=== PATIENT | female | born 1980 | race Caucasian/White ===

== ENCOUNTER 2023-01-20 06:18 | Day surgery (SDC) | payer BC, SELFPAY ==
[2023-01-12 13:42] VITALS: BMI 39.1
[2023-01-20] VITALS (18 sets, daily range): BP systolic 84–139; BP diastolic 37–89; PULSE 64–93; RESP 12–25; TEMP 36.1–36.6; O2SAT 94–100; BMI 38.9
[2023-01-20] MEDS: LACTATED RINGERS 1,000 ML 42 ML IV ×3 (06:51→10:34)
[2023-01-20] MEDS: VANCOMYCIN 1,000 MG/200 ML PIGGYBACK 200 MG IV (06:51)
--- NOTE | 2023-01-20 07:32 | DI.RAD.S_ITS ---
PROCEDURE: XR HIP W PEL IF DONE LT 2V INDICATIONS: TOTAL LEFT HIP REPLACEMENT TECHNIQUE: AP pelvis and lateral view of the left hip acquired. COMPARISON: [facility], CR, XR PELVIS 1-2V, 01/20/2023, 9:16. [facility], CR, XR PELVIS WITH BILATERAL LATERAL HIPS, 10/03/2022, 16:36. FINDINGS: Bones: Patient is status post left hip arthroplasty, with hardware components in expected positions. The hip joint appears congruent. The visualized bony structures appear intact. Degenerative changes again seen in the right hip and pubic symphysis. Soft tissues: Overlying postoperative changes are noted. No suspicious soft tissue densities. IMPRESSION: Expected post-operative appearance of a hip arthroplasty. Approved by: Albert Layton M.D. on 01/20/2023 at 13:19
--- NOTE | 2023-01-20 07:40 | PM.PREOP ---
Pre-operative Note Interval Note History & Physical reviewed/Exam performed by Physician: Yes Changes to H&P: No
--- NOTE | 2023-01-20 07:42 | DI.RAD.S_ITS ---
PROCEDURE: XR PELVIS 1-2V INDICATIONS: LEFT VASILE TECHNIQUE: Intra-operative view of the pelvis and hip acquired. COMPARISON: None. FINDINGS: Bones: Intraoperative devices prior to placement of arthroplasty prostheses are in expected positions. No fractures or suspicious bony lesions. Soft tissues: Overlying surgical retractors are present, along with other intraoperative changes. IMPRESSION: Expected appearance of the trial hardware. Dictated by: Piyush Black M.D. on 01/20/2023 at 14:33 Approved by: Piyush Black M.D. on 01/20/2023 at 14:34
[2023-01-20] MEDS: CEFAZOLIN 2 GM/100 ML PREMIX 100 ML IV ×3 (08:22→23:06)
--- NOTE | 2023-01-20 08:28 | SUR.OPER ---
Lateral on padded OR bed. Gel axillary roll. Arms secured on padded armboard with pillow supporting top arm. Padded hip positioner braces x4 - anterior and posterior chest and pelvis. Additional gel pad used anterior pelvis. Gel pad under bottom leg from knee to foot and secured with tape over sheet.
[2023-01-20] MEDS: BUPIVACAINE LIPOSOME 266 MG/20 ML VIAL INJ (08:31)
[2023-01-20] MEDS: TRANEXAMIC ACID 1,000 MG VIAL 2000 MG INJ ×2 (08:32→09:42)
[2023-01-20] MEDS: BUPIVACAINE 0.25% (PF) 60 ML, EPINEPHrine 0.3 MG INJ (08:32)
[2023-01-20] MEDS: fentaNYL 100 MCG/2 ML INJ IV ×4 (10:20→11:04)
[2023-01-20] MEDS: HYDROMORPHONE 1 MG INJ IV ×8 (10:27→11:27)
[2023-01-20] MEDS: hydrOXYzine 50 MG/ML INJ IM ×2 (10:34→11:22)
--- NOTE | 2023-01-20 10:35 | PM.OP.1 ---
Operative Date/Time/Diagnoses Date of procedure: 01/20/23 Time of procedure: 08:00 Pre-op diagnosis: Severe left hip OA Post-op diagnosis: same Procedure & Clinicians Procedure: Left total hip arthroplasty posterior approach Same procedure as scheduled: Yes Indications: The patient has had progressively worsening left hip pain with radiographic changes consistent with arthritis. Non-operative management has failed and the patient has requested total hip replacement. The risks, benefits and alternatives to surgery were discussed with the patient prior to proceeding. Risks discussed included, but were not limited to, failure to relieve pain, leg length discrepancy, dislocation, stiffness, infection, nerve damage, deep venous thrombosis, pulmonary embolism, stroke, coma, heart attack, permanent paralysis and , as well as the potential need for eventual revision of the prosthetic. Surgeon: Demetria Mireles Tieing Machine Operator: Abhilash Morales Click Yes if Unassisted: Yes Anesthesia Type: General Operative Notes Findings: Severe left hip OA with marked osteophyte formation, adequate bone, adequate stability Closure Type: primary Specimen(s): none sent Prosthetic devices, grafts, tissues, transplants, or devices: Mireles and nephew size 52 R3 cup, neutral poly liner, size 3 standard polar stem with collar, 36+ 0 Oxinium femoral head Estimated Blood Loss (mL): 250 Blood products transfused: none Procedure in detail: The patient was seen in the pre-operative area, where the patient identified the left hip as the operative site and this was marked with my initials. The patient received pre-operative antibiotics and was taken to the operating room and placed on the operative table in the right lateral decubitus position after satisfactory anesthesia. A time analysis clerk out was performed. The left leg was prepared from the ankle to the iliac crest with ChloroPrep in the usual fashion and draped through sterile drapes. A PA was used throughout the procedure and was essential for intraoperative retraction. The patient was noted to have morbid obesity with a BMI of 38.9. The hip was approached through an approximately 20 cm incision centered over the greater trochanter and curving gently posteriorly as it went proximally. This was carried sharply to the fascia juan antonio, which was divided and retracted with a self retaining retractor. The trochanteric bursa was excised with care being taken to avoid the sciatic nerve, which was identified and protected throughout the case. The short external rotators were incised and the capsulomuscular flap was raised and tagged for later repair. The hip was dislocated, and a femoral neck osteotomy performed approximately 15 mm above the lesser trochanter. Retractors were placed around the femur. The canal was opened with a box cutting osteotome, followed by a T handled reamer and a lateralizing reamer. The chili pepper broach was then used, followed by sequential broaching until there was good stability of the broach in the femur. Retractors were placed to expose the acetabulum. The labrum and central soft tissues were removed. Reaming was performed initially going up in 2 mm increments, then 1 mm increments until good bite was obtained with an odd sized reamer. The cup 1 mm larger than the last reamer was then inserted using the appropriate anteversion guides. A trial neutral liner was placed. The broach was placed in the canal. A trial head and neck were then placed and the hip relocated and checked for leg length and stability. An intraoperative film confirmed the component position and no evidence of fracture. The patient was stable in the position of sleep, of squatting, and could be put through a range of motion with 45 degrees internal rotation without dislocation. At 90 degrees flexion, internal rotation to 80? was possible before dislocation. This was felt to be satisfactory and the appropriate components were opened, and the trials were removed. The acetabular liner was impacted into position. I carefully tested the stem and decided to go up 1 size. The final stem was then impacted into the prepared femoral canal. A brief Betadine soak was performed while trialing with head options. The hip was meticulously irrigated with normal saline. Finally the femoral head was impacted onto the stem. The acetabulum was cleared of all material and the hip relocated one final time. The capsulomuscular flap was then repaired to the greater trochanter though an awl hole using the tag sutures. The short external rotators were repaired with a nonabsorbable suture. The fascia juan antonio was closed with Vicryl. The subcutaneous layer was closed with barbed sutures and a few skin laureano. An Aquacel Ag dressing was applied and the patient was taken to recovery having tolerated the procedure well. Complications: none Post-operative Condition: stable Disposition: Acute Care Plan for aftercare: The patient will be maintained on a standard total hip replacement protocol with weight bearing as tolerated and posterior hip precautions. The patient will receive Aspirin and sequential compression devices for DVT prophylaxis. The patient will be discharged home when safe for the home environment.
[2023-01-20] MEDS: KETOROLAC 30 MG/ML VIAL IV (10:45)
[2023-01-20] MEDS: ACETAMINOPHEN IV 1,000 MG/100 ML VIAL 400 MG IV (10:47)
[2023-01-20] MEDS: OXYCODONE IR 5 MG TABLET PO ×4 (11:04→21:46)
[2023-01-20] MEDS: PREGABALIN 75 MG CAPSULE PO (11:05)
[2023-01-20] MEDS: ONDANSETRON 4 MG/2 ML INJ IV (11:06)
--- NOTE | 2023-01-20 12:18 | SUR.PHASEI ---
Pt transferred to room 221 in bed by this Rn with SBAR report to [facility]. Pt began to c/o lower abd pain at bladder area on transfer. Bladder soft to touch prior to this. Upon transfer bladder scan done by [facility] with over 900 in bladder on scan. Dr Mireles notified in OR and order for straight cath received.
[2023-01-20] MEDS: ACETAMINOPHEN 325 MG TABLET 650 MG PO ×2 (14:05→22:20)
[2023-01-20] MEDS: OXYCODONE IR 10 MG TABLET PO ×3 (14:05→23:06)
[2023-01-20] MEDS: LACTATED RINGERS 1,000 ML 100 ML IV (14:07)
--- NOTE | 2023-01-20 14:45 | PC.NURSE ---
Pt reported abd. discomfort at arrival, bladder scan done 999+ found on scan. Straight Cath was performed, 1725mL urine output. Pt reported discomfort is much improved when bladder was emptied. Pt now able to get up to BSC for voiding but was unable to do void. Will f/u with bladder scan. Pt reports pain is improving from a 7/10 to a 6/10. Pt asking to move around in room. 1PA with FWW moving well w/ no difficulty and mild discomfort.
--- NOTE | 2023-01-20 16:07 | OT.IPNOTE ---
Initiated OT robbin , but pt wanting to complete tomorrow as her family just coming in to visit her. Set-up with her brother to come at 930Am for caregiver training. NO charge. Able to point out items of need for pt at home due to her hip precautions.
[2023-01-20] MEDS: IBUPROFEN 400 MG TABLET PO ×2 (16:38→20:52)
[2023-01-20] MEDS: DOCUSATE 100 MG CAPSULE PO (20:52)
[2023-01-20] MEDS: ASPIRIN EC 81 MG TABLET PO (20:52)
[2023-01-20] MEDS: GABAPENTIN 600 MG TABLET PO (22:19)
[2023-01-20] MEDS: MELATONIN 3 MG TABLET 9 MG PO (22:19)
[2023-01-20] MEDS: KETOROLAC 30 MG/ML VIAL 15 MG IV (22:20)
[2023-01-21] VITALS: BP 113/48; PULSE 70; RESP 18; TEMP 36.6; O2SAT 96
[2023-01-21 04:00] VITALS: BP 107/55; PULSE 92; RESP 16; TEMP 36.4; O2SAT 98
[2023-01-21 05:11] LABS: Hematocrit 30.8 % (36-46); Hemoglobin 10.5 g/dL (12.0-16.0)
--- NOTE | 2023-01-21 07:20 | P.DS_ITS ---
History of Present Illness History of Present Illness Date Patient Seen: 01/21/23 Time Patient Seen: 07:20 Chief complaint: Left Total Hip Arthroplasty 01/20 Narrative: Operative Date/Time/Diagnoses Date of procedure: 01/20/23 Time of procedure: 08:00 Pre-op diagnosis: Severe left hip OA Post-op diagnosis: same Procedure & Clinicians Procedure: Left total hip arthroplasty posterior approach Same procedure as scheduled: Yes Indications: The patient has had progressively worsening left hip pain with radiographic changes consistent with arthritis. Non-operative management has failed and the patient has requested total hip replacement. The risks, benefits and alternatives to surgery were discussed with the patient prior to proceeding. Risks discussed included, but were not limited to, failure to relieve pain, leg length discrepancy, dislocation, stiffness, infection, nerve damage, deep venous thrombosis, pulmonary embolism, stroke, coma, heart attack, permanent paralysis and , as well as the potential need for eventual revision of the prosthetic. Surgeon: Demetria Mireles Marksmanship Instructor: Abhilash Morales Click Yes if Unassisted: Yes Anesthesia Type: General Operative Notes Findings: Severe left hip OA with marked osteophyte formation, adequate bone, adequate stability Closure Type: primary Specimen(s): none sent Prosthetic devices, grafts, tissues, transplants, or devices: Mireles and nephew size 52 R3 cup, neutral poly liner, size 3 standard polar stem with collar, 36+ 0 Oxinium femoral head Estimated Blood Loss (mL): 250 Blood products transfused: none Discharge Providers Provider Discharge Date: 01/21/23 Primary care physician: Paola Jesus PA-C Consults: 01/20/23 07:30 Consult to Anesthesiology Routine Comment: Consulting Provider: Anesthesiologist Reason for consultation: Regional block for post operative pain control 01/20/23 07:41 Consult to Anesthesiology Routine Comment: Consulting Provider: Anesthesiologist Reason for consultation: Regional block for post operative pain control 01/20/23 12:16 Consult to Discharge Planning Routine Comment: Consult to Occupational Therapy Evaluate & Treat Comment: Physician Instructions: Evaluate and treat Consult to Physical Therapy Evaluate & Treat Comment: Physician Instructions: post op VASILE protocol Discharge provider: Ela Ellis PA-C Summary Hospital Course Discharge Diagnosis: Severe left hip osteoarthritis, s/p left total hip arthroplasty Hospital Course: Ms Durand'amina hospital course was unremarkable. On the morning of POD# 1, she was feeling well and wanted to go home. She was eating and voiding without difficulty. She had not yet been OOB or worked w/ PT. Exam Vital Signs (past 8 hours): - 01/21/23 00:00 01/21/23 04:00 Temperature 97.8 F 97.6 F Pulse Rate 70 92 H Respiratory Rate 18 16 Blood Pressure 113/48 L 107/55 L Pulse Oximetry 96 98 Oxygen Flow Rate 0 2 Oxygen Delivery Method Room Air Oxygen Flow Rate 2 Narrative Exam Narrative: 5/5 strength in PF, DF, EHL on left; 3/5 hip flexors, quadriceps, hamstrings. Sensation to light touch intact throughout LLE. Calf soft, compressible, nontender. MITESH dressing functioning, CDI. Objective Labs 01/21/23 04:45 Labs: Laboratory Results - last 24 hr 01/21/23 04:45 Hgb 10.5 L Hct 30.8 L PFSH Medical History (Updated 01/12/23 @ 14:10 by Deisy Rivera RN) Psoriatic arthritis Psoriasis Osteoarthritis Spinal stenosis Overactive bladder Diverticulitis (11/2021) Surgical History (Updated 01/12/23 @ 14:09 by Deisy Rivera RN) S/P lumbar microdiscectomy Hx of cholecystectomy Social History household members: children Smoking Status: Former smoker alcohol intake: current Discharge Assessment & Plan Assessment and Plan Assessment: Severe left hip osteoarthritis, s/p left total hip arthroplasty Plan of Treatment: Discharge home after PT if PT agrees. Pt has postop pain meds at home. Outpt PT, f/u in office in 2 weeks as scheduled. Discharge Plan Discharge Plan Patient Disposition: Home Discharge orders & Medications Discharge Orders: Discharge (Order); Ordered 01/21/23 Ordered By: Ela Ellis Prescriptions: Continued oxybutynin chloride 15 mg Tablet Extended Release 24hr 15 mg PO DAILY Humira(CF) Pen 40 mg/0.4 mL pen injector kit 40 mg SUBCUT Q2W Follow up/Referrals: Paola Jesus PA-C [Primary Care Provider] - Demetria Mireles MD [Physician] - As previously scheduled (Follow up with Dr Mireles on 01/30/2023 @ 1:30 pm at [facility] office in [place].) Diet/Activity/Treatments Diet: Diet as Tolerated Activity: Weightbearing as tolerated to left leg. Posterior hip precautions. Cold/Heat Therapy: Ice to hip as needed for pain. Skin/Wound/Dressing Care Report to your healthcare provider any signs of infection, such as:: chills, fever, night sweats, unusual drainage and unusual redness Dressing: May shower. Leave dressing in place until follow up in office. Batteries will in 5-7 days, at which point you can cut off the battery pack and dispose of it. No bathing or otherwise soaking incision. Call the office if the dressing becomes saturated inside. Visit Report/Discharge Packet Instructions: DI for Hip Replacement, DI for Prescription Opioid Use Stand Alone Forms: Patient Portal/API, Surgery Discharge Discharge Data Primary Care Provider: Paola Jesus Attending Provider: Demetria Mireles
[2023-01-21] MEDS: OXYCODONE IR 5 MG TABLET PO (07:27)
[2023-01-21] MEDS: ACETAMINOPHEN 325 MG TABLET 650 MG PO ×2 (07:27→12:20)
[2023-01-21 08:00] VITALS: BP 97/42; PULSE 69; RESP 18; TEMP 36.4; O2SAT 100
[2023-01-21] MEDS: IBUPROFEN 400 MG TABLET PO ×2 (08:16→12:20)
[2023-01-21] MEDS: polyethylene glycoL 3350 17 GM POWD.PACK PO (08:16)
[2023-01-21] MEDS: DOCUSATE 100 MG CAPSULE PO (08:16)
[2023-01-21] MEDS: ASPIRIN EC 81 MG TABLET PO (08:17)
[2023-01-21] MEDS: OXYBUTYNIN 5 MG ER TAB 15 MG PO (08:17)
--- NOTE | 2023-01-21 09:47 | OT.IP.EVAL ---
Current Diagnoses Unilateral primary osteoarthritis, left hip (01/20/23) Surgery Performed Operation Date: 01/20/23 07:45 Actual Procedures p Total Hip Arthroplasty(Left) - Demetria Mireles MD Past Medical History (Last Updated 01/12/23 @ 14:10 by Deisy Rivera, RN) Diverticulitis (11/2021) Osteoarthritis Overactive bladder Psoriasis Psoriatic arthritis Spinal stenosis Surgical History (Last Updated 01/12/23 @ 14:09 by Deisy Rivera, RN) Hx of cholecystectomy S/P lumbar microdiscectomy Occupational Therapy Inpatient Evaluation/Re-Eval M1 PT/OT-IP Prior Functional Status Start: 01/21/23 11:44 Freq: NEEDED Status: Active Protocol: Document 01/21/23 09:00 [facility] (Rec: 01/21/23 12:24 [facility] [id number]) Medical Review Prior Functional Status Communication Independent Mobility and Gait Pt having pain during mobility needs. Activities of Daily Living and IADL's Pt had pain and needing assist for LB dressing needs and IADL needs. Social History Household Members children Living Arrangements Apartment/Condo Number of Floors (Floors) One Floor Number of Stairs To Enter/Railing? Pt has 2 flights with right rail and 10 landing in between . Home Environment Standard Height Toilet,Tub/ Shower Home Equipment Front Wheel Walker,Raised Toilet Seat w/Armrests,Business Intelligence Administrator Additional Social History Comment Pt has an adjustable bed. M2 OT-IP Current Condition Start: 01/21/23 11:44 Freq: Status: Active Protocol: Document 01/21/23 09:00 [facility] (Rec: 01/21/23 12:24 [facility] [id number]) Occupational Therapy Current Condition Current Condition Evaluation Date 01/21/23 Treatment Diagnosis S/P L VASILE posterior approach Diagnosis Onset Date 01/20/23 Post Operative Precautions Posterior Hip Precautions No Hip Flexion > 90 degrees,No Hip Internal Rotation,No Hip Adduction M3 OT- IP Subjective and Pain Start: 01/21/23 11:44 Freq: Status: Active Protocol: Document 01/21/23 09:00 [facility] (Rec: 01/21/23 12:24 [facility] [id number]) OT- Subjective Occupational Therapy Visit Type Type Initial Evaluation Visit Start Time 09:00 Visit Stop Time 09:47 Total Visit Minutes 47 Occupational Therapy Visit Comments Patient Comments Pt agreed to get dressed. Patient/Caregiver Goals To go home. OT Pain Assessment Pain When Pain Assessed During Mobility Pain Present Pain Present Pain Reported Location Left Hip Intensity 6 Scale Used Numeric (0 - 10) M4 OT- IP ADL's Start: 01/21/23 11:44 Freq: Status: Active Protocol: Document 01/21/23 09:00 [facility] (Rec: 01/21/23 12:24 [facility] [id number]) OT ABN-Rdne-Ezxwxco General Evaluation Self-Feeding Ability Independent OT ADL-Grooming Comments OT Grooming Comments Not performed. OT ADL-Oral Care Comments Oral Care Comments NOt performed. OT ADL-Dressing General Eval Lower Body Dressing Ability Maximum Assistance Areas Needing Assistance Underpants/Brief,Pants/Shorts, Socks,Shoes Comments OT Dressing Comments Pt needing assist to lift her LLE to assist for ADL needs, especially to help get clothing over feet. OT ADL-Toileting Comments OT Toileting Comments Pt did not go. Pt educated best to stand and wipe in order to best follow her hip precautions. OT ADL-Bathing Comments OT Bathing Comments Pt will benefit from a tub bench at home. Pt states not a lot of room in the bathroom and may have to slide from the toilet to get on the tub bench. Pt will benefit from home health OT and bath aid. M5 OT- IP IADL's Start: 01/21/23 11:44 Freq: Status: Active Protocol: Document 01/21/23 09:00 [facility] (Rec: 01/21/23 12:24 [facility] [id number]) OT-Instrumental Activities of Daily Living Deficits IADL Deficits Identified Deficits Home Safety Awareness Awareness of Need for Assistance at Home Good Awareness Ability to Problem Solve Emergency Able to Problem Solve Situations Medication Management Medication Management No Deficits Identified Money Management Money Management No Deficits Identified Meal Preparation Meal Preparation Caregiver Provides Assist Cofounder Cofounder Caregiver Provides Assist M6 OT- IP Functional Cognition Start: 01/21/23 11:44 Freq: Status: Active Protocol: Document 01/21/23 09:00 [facility] (Rec: 01/21/23 12:24 [facility] [id number]) Cognitive Factors Limiting Selfcare Function Cognitive Ability Level of Alertness Alert Patient Orientation Name,Age,Birthday,Month,Date, Year,Day of Week,Place, Situation Attention Span Ability Capable of Focused Attention, Capable of Sustained Attention Ability to Follow Commands Able to Follow One Step Commands Memory Description No Deficits Noted Safety Awareness No Deficits Noted Problem Solving Ability No deficits Noted Cognitive Comments Cognitive Assessment Comments Pt able to follow her hip precaution for ADL and mobility needs with good safety. OT- Vision and Hearing OT- Hearing Assessment OT- Hearing Assessment WFL OT- Vision Assessment Visual Acuity Glasses All The Time Visual Attentiveness WFL Occular Pursuits WFL M7 OT- IP Mobility and Balance Start: 01/21/23 11:44 Freq: Status: Active Protocol: Document 01/21/23 09:00 [facility] (Rec: 01/21/23 12:24 [facility] [id number]) OT- Bed Mobility Assessment Supine to Sit Supine to Sit Assist Minimal Assistance Sit to Supine Sit to Supine Assist Minimal Assistance Scooting Scooting to Edge of Bed Contact Guard Assistance OT-Transfer Assessment Sit to and From Stand Sit to and from Stand Minimal Assistance Transfers Transfer Ability Contact Guard Assistance Technique Transfer Destination Bed,Chair Transfer Technique Stand Step Pivot Devices Transfer Assistive Devices Gait Belt,Front Wheeled Walker Comments Mobility Comments RON to help with her LLE into and out of the bed. Pt needing heavy use of her hand on the FWW to stand and educated to try to push up with one hand on the bed and that her brother was able to hold the FWW in place. Once on her feet pt is SBA. OT- Balance Assessment Sitting Balance and Reactions Static Sitting Balance Ability Good Dynamic Sitting Balance Ability Good Standing Balance and Reactions Static Standing Balance Ability Fair Dynamic Standing Balance Ability Fair M9 OT- IP Assessment and Plan Start: 01/21/23 11:44 Freq: Status: Active Protocol: Document 01/21/23 09:00 [facility] (Rec: 01/21/23 12:24 [facility] [id number]) OT Summary Assessment and Plan Potential Rehabilitation Potential Good Analytic Complexity at Evaluation Low Summary OT Impairments Pain,Balance,Functional Mobility,Dressing,Toileting, Bathing,Toilet Transfers, Shower Transfers,Activity Tolerance Progress Towards Goals Slow Progress due to Pain,Slow Progress due to Activity Tolerance Assessment Summary Pt low complexity and main barrier is pain. Able to do over equipments needs with pt and her brother and how to daniel/doff the gait belt with her. Pt to go home with assist and benefit from home health and a bath aid initially. Goals Dressing Goal Independent,Business Intelligence Administrator,Sock Aid Toileting Goal Independent Bathing Goal Independent Toilet Transfer Goal Independent Shower Transfer Goal Independent Patient/Caregiver Education Goal Caregiver Independent Assisting Patient Days to Meet Goals 10 Frequency of Treatment Frequency Of Treatment Once a Day Treatment Plan OT Treatment Plan ADL Training,Functional Mobility,Patient/Family Education,Discharge Planning Discharge Recommendations OT Discharge Recommendations Home with Assistance,Home Health Transportation Needs at Discharge Private Vehicle
--- NOTE | 2023-01-21 09:47 | OT.IP.EVAL ---
Current Diagnoses Unilateral primary osteoarthritis, left hip (01/20/23) Surgery Performed Operation Date: 01/20/23 07:45 Actual Procedures p Total Hip Arthroplasty(Left) - Demetria Mireles MD Past Medical History (Last Updated 01/12/23 @ 14:10 by Deisy Rivera, RN) Diverticulitis (11/2021) Osteoarthritis Overactive bladder Psoriasis Psoriatic arthritis Spinal stenosis Surgical History (Last Updated 01/12/23 @ 14:09 by Deisy Rivera, RN) Hx of cholecystectomy S/P lumbar microdiscectomy Occupational Therapy Inpatient Evaluation/Re-Eval M1 PT/OT-IP Prior Functional Status Start: 01/21/23 11:44 Freq: NEEDED Status: Active Protocol: Document 01/21/23 09:00 [facility] (Rec: 01/21/23 12:24 [facility] [id number]) Medical Review Prior Functional Status Communication Independent Mobility and Gait Pt having pain during mobility needs. Activities of Daily Living and IADL's Pt had pain and needing assist for LB dressing needs and IADL needs. Social History Household Members children Living Arrangements Apartment/Condo Number of Floors (Floors) One Floor Number of Stairs To Enter/Railing? Pt has 2 flights with right rail and 10 landing in between . Home Environment Standard Height Toilet,Tub/ Shower Home Equipment Front Wheel Walker,Raised Toilet Seat w/Armrests,Plant Guard Additional Social History Comment Pt has an adjustable bed. M2 OT-IP Current Condition Start: 01/21/23 11:44 Freq: Status: Active Protocol: Document 01/21/23 09:00 [facility] (Rec: 01/21/23 12:24 [facility] [id number]) Occupational Therapy Current Condition Current Condition Evaluation Date 01/21/23 Treatment Diagnosis S/P L VASILE posterior approach Diagnosis Onset Date 01/20/23 Post Operative Precautions Posterior Hip Precautions No Hip Flexion > 90 degrees,No Hip Internal Rotation,No Hip Adduction M3 OT- IP Subjective and Pain Start: 01/21/23 11:44 Freq: Status: Active Protocol: Document 01/21/23 09:00 [facility] (Rec: 01/21/23 12:24 [facility] [id number]) OT- Subjective Occupational Therapy Visit Type Type Initial Evaluation Visit Start Time 09:00 Visit Stop Time 09:47 Total Visit Minutes 47 Occupational Therapy Visit Comments Patient Comments Pt agreed to get dressed. Patient/Caregiver Goals To go home. OT Pain Assessment Pain When Pain Assessed During Mobility Pain Present Pain Present Pain Reported Location Left Hip Intensity 6 Scale Used Numeric (0 - 10) M4 OT- IP ADL's Start: 01/21/23 11:44 Freq: Status: Active Protocol: Document 01/21/23 09:00 [facility] (Rec: 01/21/23 12:24 [facility] [id number]) OT [id number] General Evaluation Self-Feeding Ability Independent OT ADL-Grooming Comments OT Grooming Comments Not performed. OT ADL-Oral Care Comments Oral Care Comments NOt performed. OT ADL-Dressing General Eval Lower Body Dressing Ability Maximum Assistance Areas Needing Assistance Underpants/Brief,Pants/Shorts, Socks,Shoes Comments OT Dressing Comments Pt needing assist to lift her LLE to assist for ADL needs, especially to help get clothing over feet. OT ADL-Toileting Comments OT Toileting Comments Pt did not go. Pt educated best to stand and wipe in order to best follow her hip precautions. OT ADL-Bathing Comments OT Bathing Comments Pt will benefit from a tub bench at home. Pt states not a lot of room in the bathroom and may have to slide from the toilet to get on the tub bench. Pt will benefit from home health OT and bath aid. M5 OT- IP IADL's Start: 01/21/23 11:44 Freq: Status: Active Protocol: Document 01/21/23 09:00 [facility] (Rec: 01/21/23 12:24 [facility] [id number]) OT-Instrumental Activities of Daily Living Deficits IADL Deficits Identified Deficits Home Safety Awareness Awareness of Need for Assistance at Home Good Awareness Ability to Problem Solve Emergency Able to Problem Solve Situations Medication Management Medication Management No Deficits Identified Money Management Money Management No Deficits Identified Meal Preparation Meal Preparation Caregiver Provides Assist Performance Engineer Performance Engineer Caregiver Provides Assist M6 OT- IP Functional Cognition Start: 01/21/23 11:44 Freq: Status: Active Protocol: Document 01/21/23 09:00 [facility] (Rec: 01/21/23 12:24 [facility] [id number]) Cognitive Factors Limiting Selfcare Function Cognitive Ability Level of Alertness Alert Patient Orientation Name,Age,Birthday,Month,Date, Year,Day of Week,Place, Situation Attention Span Ability Capable of Focused Attention, Capable of Sustained Attention Ability to Follow Commands Able to Follow One Step Commands Memory Description No Deficits Noted Safety Awareness No Deficits Noted Problem Solving Ability No deficits Noted Cognitive Comments Cognitive Assessment Comments Pt able to follow her hip precaution for ADL and mobility needs with good safety. OT- Vision and Hearing OT- Hearing Assessment OT- Hearing Assessment WFL OT- Vision Assessment Visual Acuity Glasses All The Time Visual Attentiveness WFL Occular Pursuits WFL M7 OT- IP Mobility and Balance Start: 01/21/23 11:44 Freq: Status: Active Protocol: Document 01/21/23 09:00 [facility] (Rec: 01/21/23 12:24 [facility] [id number]) OT- Bed Mobility Assessment Supine to Sit Supine to Sit Assist Minimal Assistance Sit to Supine Sit to Supine Assist Minimal Assistance Scooting Scooting to Edge of Bed Contact Guard Assistance OT-Transfer Assessment Sit to and From Stand Sit to and from Stand Minimal Assistance Transfers Transfer Ability Contact Guard Assistance Technique Transfer Destination Bed,Chair Transfer Technique Stand Step Pivot Devices Transfer Assistive Devices Gait Belt,Front Wheeled Walker Comments Mobility Comments RON to help with her LLE into and out of the bed. Pt needing heavy use of her hand on the FWW to stand and educated to try to push up with one hand on the bed and that her brother was able to hold the FWW in place. Once on her feet pt is SBA. OT- Balance Assessment Sitting Balance and Reactions Static Sitting Balance Ability Good Dynamic Sitting Balance Ability Good Standing Balance and Reactions Static Standing Balance Ability Fair Dynamic Standing Balance Ability Fair M9 OT- IP Assessment and Plan Start: 01/21/23 11:44 Freq: Status: Active Protocol: Document 01/21/23 09:00 [facility] (Rec: 01/21/23 12:24 [facility] [id number]) OT Summary Assessment and Plan Potential Rehabilitation Potential Good Analytic Complexity at Evaluation Low Summary OT Impairments Pain,Balance,Functional Mobility,Dressing,Toileting, Bathing,Toilet Transfers, Shower Transfers,Activity Tolerance Progress Towards Goals Slow Progress due to Pain,Slow Progress due to Activity Tolerance Assessment Summary Pt low complexity and main barrier is pain. Able to do over equipments needs with pt and her brother and how to daniel/doff the gait belt with her. Pt to go home with assist and benefit from home health and a bath aid initially. Goals Dressing Goal Independent,Plant Guard,Sock Aid Toileting Goal Independent Bathing Goal Independent Toilet Transfer Goal Independent Shower Transfer Goal Independent Patient/Caregiver Education Goal Caregiver Independent Assisting Patient Days to Meet Goals 10 Frequency of Treatment Frequency Of Treatment Once a Day Treatment Plan OT Treatment Plan ADL Training,Functional Mobility,Patient/Family Education,Discharge Planning Discharge Recommendations OT Discharge Recommendations Home with Assistance,Home Health Transportation Needs at Discharge Private Vehicle
[2023-01-21] MEDS: OXYCODONE IR 10 MG TABLET PO ×2 (09:57→12:39)
--- NOTE | 2023-01-21 10:22 | PT.IIE ---
Current Diagnoses Unilateral primary osteoarthritis, left hip (01/20/23) Surgery Performed Operation Date: 01/20/23 07:45 Actual Procedures p Total Hip Arthroplasty(Left) - Demetria Mireles MD Surgical History (Last Updated 01/12/23 @ 14:09 by Deisy Rivera RN) Hx of cholecystectomy S/P lumbar microdiscectomy Medical History (Last Updated 01/12/23 @ 14:10 by Deisy Rivera RN) Diverticulitis (11/2021) Osteoarthritis Overactive bladder Psoriasis Psoriatic arthritis Spinal stenosis Physical Therapy Inpatient Evaluation/Re-Eval M1 PT/OT-IP Prior Functional Status Start: 01/21/23 11:44 Freq: NEEDED Status: Discharge Protocol: Document 01/21/23 09:00 [facility] (Rec: 01/21/23 12:24 [facility] [id number]) Medical Review Prior Functional Status Communication Independent Mobility and Gait Pt having pain during mobility needs. Activities of Daily Living and IADL's Pt had pain and needing assist for LB dressing needs and IADL needs. Social History Household Members children Living Arrangements Apartment/Condo Number of Floors (Floors) One Floor Number of Stairs To Enter/Railing? Pt has 2 flights with right rail and 10 landing in between . Home Environment Standard Height Toilet,Tub/ Shower Home Equipment Front Wheel Walker,Raised Toilet Seat w/Armrests,Hand Mica Plate Layer Additional Social History Comment Pt has an adjustable bed. M1 PT/OT-IP Prior Functional Status Start: 01/21/23 13:57 Freq: NEEDED Status: Active Protocol: Document 01/21/23 10:22 [facility] (Rec: 01/21/23 14:18 [id number]) Medical Review Prior Functional Status Medical History Reviewed Yes Communication able to make needs known Mobility and Gait pt stated that she i smodified independent with all mobilities and ambulation withou tAD Activities of Daily Living and IADL's per OT note: Pt had pain and needing assist for LB dressing needs and IADL needs. Social History Household Members children Living Arrangements Apartment/Condo Number of Floors (Floors) One Floor Number of Stairs To Enter/Railing? has 3 steps descending with wide bilateral rails + 2 flights of steps ( 16 steps each with a landing in between ) with R rail ascending to get to her apartment Home Environment Standard Height Toilet,Tub/ Shower Home Equipment Front Wheel Walker,Straight Cane,Raised Toilet Seat w/ Armrests,Hand Held Shower Employment Status Paint Booth Operator Employed Additional Social History Comment pt has her children at home ( an 18y/o and a 12y/0) but her brother will be staying with pt to assist her as long as needed pt stated that she works for [id number] pt stated that she has an adjustable bed M2 PT-IP Current Condition Start: 01/21/23 13:57 Freq: NEEDED Status: Active Protocol: Document 01/21/23 10:22 [facility] (Rec: 01/21/23 14:18 [facility] [id number]) Physical Therapy Current Condition Current Condition Evaluation Date 01/21/23 Treatment Diagnosis s/p L VASILE posterior approach; difficulty in walking Onset Date 01/20/23 M3 PT-IP Subjective Start: 01/21/23 13:57 Freq: NEEDED Status: Active Protocol: Document 01/21/23 10:22 [facility] (Rec: 01/21/23 14:18 [facility] [id number]) Subjective Physical Therapy Visit Type Type Initial Evaluation Visit Start Time 10:22 Visit Stop Time 11:40 Total Visit Minutes 78 Number of [employer]ACH[employer]OR Visits 0 Physical Therapy Visit Comments Patient Comments pt is agreeable to do PT Therapy Pain Assessment Pain When Pain Assessed At Rest Pain Present Pain Present Pain Reported Location Left Hip Intensity 7 Scale Used increases to 9/10 with mobility Pain Behaviors Facial Grimacing,Guarding, Moaning,Wincing Pain Management Techniques Apply Cold,Distraction, Modification of Treatment,Re- positioning,Timing of Activity with Medications M4 PT-IP Mobility and Gait Start: 01/21/23 13:57 Freq: NEEDED Status: Active Protocol: Document 01/21/23 10:22 [facility] (Rec: 01/21/23 14:18 [facility] [id number]) PT-Bed Mobility Assessment Supine to Sit Supine to Sit Moderate Assistance,1 Person Assistance PT-Transfer Assessment Sit to and From Stand Sit to and from Stand Contact Guard Assistance, Moderate Assistance,1 Person Assistance,Use of Upper Extremities Equipment Transfer Assistive Device Gait Belt,Front Wheeled Walker Orthotic/Prosthetic Devices or Brace: No Transfers Transfer Destination Chair Transfer Technique ambulated Transfer Ability Level of Assist Standby Assistance,Contact Guard Assistance,1 Person Assistance,Use of Upper Extremities Comments Mobility Comments pt supine in bed. pt's brother in room with pt. educated pt and brother on pt's posterior hip precautions. pt needing cues to recall. pt's brother able to recall and cue pt as needed. pt completed supine to sit mod A for moving LLE and max cues with all tasks. pt able to sit on EOB SBA. educated pt's brother on how to assist pt and was able to assist pt. educated pt's brother on how to use safety belt and how to assist pt. pt's brother was able to put safety belt on pt. pt completed sit to stand CGA and ambulated to the chair using FWW CGA. pt required mod A for controlled descent to the chair. pt agreed to do stairs. pt requested to use the toilet. brother assisted pt to the toilet. pt able to complete toileting SBA and cues for safety. completed sit to stand CGA with use of safety belt. pt ambulated in the hallway using FWW ~ 50 ft with brother assisting CGA. assisted pt to the stairs. educated pt and pt's brother regarding stair climbing. pt completed up/down stair using R rail ascending + SPC mod A and max cues. pt with difficulty lifting RLE up the stairs due to limited ROM and needed to circumduct RLE up the stairs. pt also has a slight L knee buckling during descent on the stairs. Assisted pt back to her room. ambulated from the w/c to the chair using FWW with brother assisting. positioned pt on her chair. call light and table placed within reach. pt and pt's brother without further concerns. informed pt and pt's brother regarding HHPT recommendation at this time due to pt's decrease strength and activity tolerance affecting stairclimbing and safety. family independence case manager aware. Gait Assessment Gait Gait Assistance Required: Standby Assistance,Contact Guard Assist Distance (Feet) 50 Able to Maintain Weight Bearing Status Yes During Gait Assistive Devices Assistive Device Gait Belt,Front Wheeled Walker Orthotic/Prosthetic Devices or Brace: No Gait Deviations General Gait Pattern Antalgic,Decreased Stride Length,Decreased Feet Clearance,Step-to Gait Factors Limiting Gait Function Factors Limiting Gait Function Decreased Activity Tolerance, Decreased Strength,Difficulty Following Directions,Limited Range of Motion,Pain,Poor Balance,Poor Safety Awareness Stair Climbing Assessment Evaluation Level of Assist On Stairs Moderate Assistance,1 Person Assistance Devices Stair Climbing Assistive Devices Straight Cane,Right Railing Technique/Endurance Stair Climbing Direction Ascend and Descend Stair Climbing Technique Step to Step Number of Steps Climbed 3 Query Text: PT-Balance Assessment Sitting Balance and Reactions Static Sitting Balance Ability Normal Dynamic Sitting Balance Ability Good Standing Balance and Reactions Static Standing Balance Ability Fair Dynamic Standing Balance Ability Fair Device Used FWW M5 PT-IP Objective Assessments Start: 01/21/23 13:57 Freq: NEEDED Status: Active Protocol: Document 01/21/23 10:22 [facility] (Rec: 01/21/23 14:18 [facility] [id number]) Orientation Orientation/Cognition Level of Alertness Alert Orientation Name,Place,Situation Language Function Ability No Deficits Noted Safety Awareness Decreased Safety Awareness Memory Description Short Term Impaired Gross Range of Motion Lower Extremity ROM Assessment Bilaterally Impaired Impairments R knee flexion: ~ 40 deg L knee flexion: ~ 60 deg Strength Lower Extremity Strength Assessment Bilaterally Impaired Comments Strength Comments RLE: 3+/5 LLE: 3-/5 Sensation Assessment Sensation Gross Sensation WNL Muscle Tone Muscle Tone WNL Yes M6 PT-IP Treatment Start: 01/21/23 13:57 Freq: NEEDED Status: Active Protocol: Document 01/21/23 10:22 [facility] (Rec: 01/21/23 14:18 AB [id number]) Physical Therapy Treatment Education Education Provided Precautions,Weight Bearing Status,Post-Op Packet,Safety M7 PT-IP Assessment and Plan Start: 01/21/23 13:57 Freq: NEEDED Status: Active Protocol: Document 01/21/23 10:22 [facility] (Rec: 01/21/23 14:18 AB [id number]) PT Summary Assessment and Plan Potential Rehabilitation Potential Fair Status of Condition at Evaluation Evolving Summary Impairments Pain,ROM,Strength,Balance, Coordination,Sensation,Tone, Cognition,Bed Mobility, Transfers,Gait,Activity Tolerance Assessment Summary pt is a 42 y/o F who underwent L VASILE posterior approach. pt with L hip posterior precautions and is WBAT. pt requiring CGA to mod A with mobility and will have his brother to assist him at home. caregiver training conducted and pt's brother was able to safety assist and cue pt with all mobilities. pt may go home when medically stable. Recommending HHPT at this time . Goals Bed Mobility Goal Independent Transfer Goal Independent,Front Wheeled Walker Gait Goal Independent,Front Wheel Walker Gait Distance 250 Other Goals up/down 16 steps x 2 using SPC + R rail SBA Days to Meet Goals 10 Frequency of Treatment Frequency Of Treatment Twice a Day Treatment Plan Physical Therapy Treatment Plan Bed Mobility Training,Transfer Training,Gait Training, Therapeutic Exercise,Balance Retraining,Post Op Education, Discharge Planning,Hot or Cold Pack,Neuromuscular Re-ed, Coordination Retraining,Manual Therapy Precautions Posterior Hip Precautions No Hip Flexion > 90 degrees,No Hip Internal Rotation,No Hip Adduction Weight Bearing Status Weight Bearing Status Weight Bear as Tolerated Allowed Weight Bearing Amount (enter % LLE WBAT or #) (%) Recommendations To Nursing Amount of Assist Needed 1 Person Assist Discharge Recommendations PT Discharge Recommendations Home with 15/09 Assist Available,Home Health Transportation Needs at Discharge Private Vehicle
[2023-01-21 12:00] VITALS: BP 112/59; PULSE 74; RESP 18; TEMP 36.7; O2SAT 99
--- NOTE | 2023-01-21 12:12 | CM.DANOTE ---
Addendum entered by Silvia Hickman R.N. 01/21/23 14:31: Confirmed with Edwin at [facility] that they have accepted patient, and have checked her insurance. Will completed face to face, and orders, they do have access to REPP. Did call and contact patient on her cell and updated her, brother was also on speaker phone, she will cancel her outpatient appt on Thursday. Original Note: DCP: Case received, EMR reviewed and met with patient. Introduced self and role. Was able to obtain information regarding patient's baseline activity status prior to her surgery, as well as her current living situation. DCP assessment completed with information currently available. Patient is a 42 year old female who admitted yesterday morning to the care of the orthopedic team. [facility] Payer: confirmed: [place]. Patient came to the hospital via private vehicle for a surgical procedure. Patient had left total hip, posterior approach. Patient has history of osteoarthritis. Met with patient in her room. Patient is alert and oriented, confirmed that she resides in [facility] with her two children, one is 2, the other is 18. Patient indicated that her brother, Anjel, will be assisting her, he is here in town. At her baseline, she uses no DME supplies. She does now have a FEW, which she will use. Barrier is she has two flights of stairs to navigate. Asked her if she can stay somewhere with one level, stated she can't. Her brother will be assisting her with the stairs. She was set up with outpatient P.T on Thursday. O.T. just came in and indicated that she can benefit with home health services. Let her know that this [place] liaison planner can try, she does have out of state BC, will have to see which agency can accept. She was hopeful for [email or web address], went over the list, but will still need to verify. Asked Darya to email [facility] first to see if they can take insurance and can accept. P: Patient has discharge orders for home. Will attempt home health, unclear if they will accept. Other option is that she will have to continue with her outpatient P.T. if she can get assist managing stairs. Silvia Hickman RN/Mini Lab Operator Discharge Planning/Care Management Advanced directive, confirm from FAMILY Start: 01/20/23 13:47 Freq: Q24H Status: Active Protocol: Document 01/20/23 13:47 AKP (Rec: 01/20/23 13:47 AKP [id number]) Advance Directive, confirm on record Time 13:47 Person contacted pt doesn't have copy doesn't want to have fam bring in. Copy received No CM Discharge Assessment Start: 01/21/23 12:05 Freq: Status: Active Protocol: Document 01/21/23 12:05 (Rec: 01/21/23 12:11 [id number]) Discharge Planning Assessment Assigned Metallography Teacher Silvia Hickman RN/Mini Lab Operator Advance Directives? Yes: Pt doesn't want it mentioned to family at all. Advance Directives on File No History Provided By Patient,Medical Record Prior Living Arrangements Apartment/Condo Household Members children Type of transporation used prior to Drives own vehicle admit Independent with ADL's Yes Is patient alert and oriented? Yes Caregiver for Another Yes: Has two children, one is 2, the other is 18 Patient/Family Preference Home with Home Health Barriers to Discharge Yes Comment Two flights of stairs to navigate, and pain issues. Discharge Plan Home Transportation Arrangement Brother Referrals Initiated Home Health Additional Comment Will have to see which agency accepts her insurance, Darya will email [email or web address] If patient plan is home with home health Yes : Has signed face to face form been completed? Medicare Choice List Provided Yes SNF/HH Preference Patient wants [facility]', but will depend if they can accept her insurance. Has Agency SNF been contacted Yes Comment Will contact via email Whiteboard Updated in Patient Room with Yes name and ext. # of Metallography Teacher Review Status In Process Next Review Type Continued Stay Review Pre-Anesthesia Assessment Start: 01/12/23 13:42 Freq: Status: Active Protocol: Document 01/12/23 13:42 CAB (Rec: 01/12/23 14:24 CAB [id number]) Pre-Anesthesia Assessment Preferred Name Niya or Candelaria Patient Information Reviewed Via Phone Assessment Assessment Completed With Patient Diagnostic Results BMP/CMP,CBC,EKG,Urinalysis Comment Outside labs/EKG scanned Comment PCP pre-op scanned Seen Specialist in Last 12 Months Yes Specialist Seen Orthopedist,Urologist,Other Comment RA Primary Language Argentine Addiction Counselor Required No Height 5 ft 5 in Weight 235 lb Body Mass Index (BMI) 39.1 Hearing Ability Normal Visual Assist Glasses Dentition Type Teeth, Natural Present Barriers to Learning None Hx Anesthesia Reactions Yes: I metabolize anesthesia quickly Hx Family Anesthesia Reaction No Hx Malignant Hyperthermia No Hx Blood Transfusions No Anesthesia Review Requested No Cotton Picker No alcohol intake current alcohol intake frequency holidays/special occasions only Smoking Status Former smoker how long ago did patient quit smoking Quit age 31 Substance Use Type marijuana Comment Pt advised not to smoke 24 hours prior to surgery Pain Present Pain Reported Musculoskeletal Symptoms Abnormal Gait,Back Pain, Difficulty Walking,Joint Pain History of Falling (Recent or History of No ) Patient is completely paralyzed or No completely immobile Mental Status Oriented to own ability Is patient on oxygen? No Does patient have WALSH/SOB No Hx Sleep Apnea No Currently Taking a Beta Roberto Carlos No Hx Chest Pain No Hx SOB No Hx Syncope or Dizziness No Anti-Coagulant Therapy No Has a Aboriginal Education Teacher No Cardiac Testing No Hx Pacemaker/ICD No Pacemaker Rep Required? No Cardiac Clearance Received Not Applicable Diet Type At Home Regular Dysphagia No Gastrointestinal Symptoms None Bladder Pattern Frequency,Incontinent,Nocturia ,Urgency Urinary Catheter Present No Hx Urinary Self Catheterization No Diabetes No Patient No Lactating No Hx Drug Resistant Organism Yes: MRSA leg over 18 years ago Presence of External or Internal Medical No Devices Received a COVID vaccine? Yes Received all doses? No Marital Status Lives With children Current Living Arrangements Apartment/Condo Number of Floors (Floors) 3 or More Floors Support System Sibling(s) Comment Brother flying in from [place] to assist w/care @PR Does the Patient Have Assistance After Yes Surgery Patient Discharge Plan Description Return Home Comment Pt advised overnight length of stay per surgeon Feels Safe in Current Environment Yes Been Physically Hurt or Threatened By a No Person in Current Environment Do you have thoughts of harming yourself None or others? Are you currently considering suicide? No Do you have a plan to hurt yourself or No Plan others? Do You Have Any Spiritual Beliefs That No May Affect Your HC Choices? Do You Have Any Cultural Practices That No May Affect Your HC Choices? Who Can We Speak to About Patient's Care Family, friends Identifying Code for Release of Patient Declines to issue Information Health Care Proxy/Next of Kin Fidencio Maura (good friend) Health Care Proxy Emergency Contact Name Anjel (brother) Emergency Contact Advance Directives? Yes Advance Directives on File No Requested Patient Bring Advanced Yes Directives DOS Power of Under Ground Miner Yes Power of Under Ground Miner Name Fidencio Lorenzo (good friend) Power of Under Ground Miner PAC Instructions Do not shave/clip surgical site,Durable medical equipment ,Medications to take/avoid, Nasal antibiotic,No ETOH/ petroleum product on skin DOS, NPO,Pre-surgical wash,Sensory aids,Sturdy shoes/comfortable clothes,Do not bring valuables and remove jewelry
== END 2023-01-21 13:37 | disposition home or self-care (01) ==
LOC: OR 06:20 → AC 06:22
PROVIDERS: PCP Physician Assistant Medical; Referring Provider Orthopaedic Surgery; Visit Provider Orthopaedic Surgery
PROC: 0SRB0JZ Replacement of Left Hip Joint with Synthetic Substitute, Open Approach (ICD-10-PCS; CPT 27130; principal; 2023-01-20 07:45)
DX: M16.12 Unilateral primary osteoarthritis, left hip (principal); M25.752 Osteophyte, left hip
CPT/HCPCS: 27130; 36415; 72170; 73502; 85014; 85018; 97162; 97165; 97530; 97535; C1776; C9290; J0131; J0171; J0690; J1100; J1170; J1885; J2405; J2704; J3010; J3410

== ENCOUNTER 2023-12-31 08:37 | Day surgery (SDC) | payer OTHER, SELFPAY ==
[2023-01-20 13:39] VITALS: BMI 38.9
[2023-12-21 08:48] VITALS: BMI 38.2
[2023-12-21 10:58] VITALS: BMI 38.2
[2023-12-24 15:18] VITALS: BMI 38.2
[2023-12-31] VITALS (12 sets, daily range): BP systolic 90–122; BP diastolic 50–77; PULSE 54–77; RESP 15–20; TEMP 35.9–36.4; O2SAT 94–100; BMI 38.2
--- NOTE | 2023-12-31 | DI.RAD.S_ITS ---
PROCEDURE: XR PELVIS 1-2V INDICATIONS: INTRA OP TECHNIQUE: Intra-operative view of the pelvis and hip acquired. COMPARISON: [facility], CR, XR PELVIS 1-2V, 01/20/2023, 9:16. FINDINGS: Bones: Intraoperative devices prior to placement of arthroplasty prostheses are in expected positions. No fractures or suspicious bony lesions. Soft tissues: Overlying surgical retractors are present, along with other intraoperative changes. IMPRESSION: Expected intraoperative appearance of a right hip arthroplasty. Approved by: Albert Layton M.D. on 12/31/2023 at 13:14
--- NOTE | 2023-12-31 06:00 | DI.RAD.S_ITS ---
PROCEDURE: XR HIP W PEL IF DONE RT 2V INDICATIONS: right VASILE TECHNIQUE: 2 view(s) of the hip acquired. COMPARISON: [facility], MIS, XR HIP W PEL IF DONE LT 2V, 01/20/2023, 10:25. FINDINGS: Bones: Patient is status post right hip arthroplasty, with hardware components in expected positions. The hip joint appears congruent. The visualized bony structures appear intact. Left hip arthroplasty is stable. Soft tissues: Overlying postoperative changes are noted. No suspicious soft tissue densities. IMPRESSION: New right hip arthroplasty. Dictated by: Jeannette Leija M.D. on 12/31/2023 at 20:24 Approved by: Jeannette Leija M.D. on 12/31/2023 at 20:25
[2023-12-31] MEDS: VANCOMYCIN 1,000 MG/200 ML PIGGYBACK 200 MG IV (09:04)
[2023-12-31] MEDS: LACTATED RINGERS 1,000 ML 84 ML IV (09:04)
[2023-12-31] MEDS: CELECOXIB 200 MG CAPSULE PO (09:05)
[2023-12-31] MEDS: ACETAMINOPHEN 325 MG TABLET 975 MG PO (09:05)
--- NOTE | 2023-12-31 10:29 | PM.PREOP ---
Pre-operative Note Interval Note History & Physical reviewed/Exam performed by Physician: Yes Changes to H&P: No
--- NOTE | 2023-12-31 10:30 | PM.OP.1 ---
Operative Date/Time/Diagnoses Date of procedure: 12/31/23 Time of procedure: 11:20 Pre-op diagnosis: Severe right hip OA Post-op diagnosis: same Procedure & Clinicians Procedure: Right total hip arthroplasty posterior approach Same procedure as scheduled: Yes Indications: The patient has had progressively worsening right hip pain with radiographic changes consistent with arthritis. Non-operative management has failed and the patient has requested total hip replacement. The risks, benefits and alternatives to surgery were discussed with the patient prior to proceeding. Risks discussed included, but were not limited to, failure to relieve pain, leg length discrepancy, dislocation, stiffness, infection, nerve damage, deep venous thrombosis, pulmonary embolism, stroke, coma, heart attack, permanent paralysis and , as well as the potential need for eventual revision of the prosthetic. Surgeon: Demetria Mireles Licensed Mortician: Abhilash Morales Anesthesia Type: General and Spinal Operative Notes Findings: Severe right hip OA, adequate stability, adequate bone Closure Type: primary Specimen(s): none sent Prosthetic devices, grafts, tissues, transplants, or devices: Mireles and nephew R3 size 52, neutral poly liner, one 6.5 mm screw, polar stem standard offset size 3 with collar, 36 x +0 Oxinium head Estimated Blood Loss (mL): 250 Blood products transfused: none Procedure in detail: The patient was seen in the pre-operative area, where the patient identified the right hip as the operative site and this was marked with my initials. The patient received pre-operative antibiotics and was taken to the operating room and placed on the operative table in the left lateral decubitus position after satisfactory anesthesia. A multimedia producer out was performed. The right leg was prepared from the ankle to the iliac crest with ChloroPrep in the usual fashion and draped through sterile drapes. A PA was used during the procedure and was essential for intraoperative retraction and safe implantation of the components. The hip was approached through an approximately 20 cm incision centered over the greater trochanter and curving gently posteriorly as it went proximally. This was carried sharply to the fascia juan antonio, which was divided and retracted with a self retaining retractor. The trochanteric bursa was excised with care being taken to avoid the sciatic nerve, which was identified and protected throughout the case. The short external rotators were incised and the capsulomuscular flap was raised and tagged for later repair. The hip was dislocated, and a femoral neck osteotomy performed approximately 15 mm above the lesser trochanter. Retractors were placed around the femur. The canal was opened with a box cutting osteotome, followed by a T handled reamer and a lateralizing reamer. The chili pepper broach was then used, followed by sequential broaching until there was good stability of the broach in the femur. Retractors were placed to expose the acetabulum. The labrum and central soft tissues were removed. Reaming was performed initially going up in 2 mm increments, then 1 mm increments until good bite was obtained with an odd sized reamer. The cup 1 mm larger than the last reamer was then inserted using the appropriate anteversion guides. It was further fixed with a single screw. A trial neutral liner was placed. The broach was placed in the canal. A trial head and neck were then placed and the hip relocated and checked for leg length and stability. An intraoperative film confirmed the component position and no evidence of fracture. The patient was stable in the position of sleep, of squatting, and could be put through a range of motion with 45 degrees internal rotation without dislocation. At 90 degrees flexion, internal rotation to 80? was possible before dislocation. This was felt to be satisfactory and the appropriate components were opened, and the trials were removed. The acetabular liner was impacted into position. The final stem was then impacted into the prepared femoral canal. A brief Betadine soak was performed while trialing with head options. The hip was meticulously irrigated with normal saline. Finally the femoral head was impacted onto the stem. The acetabulum was cleared of all material and the hip relocated one final time. The capsulomuscular flap was then repaired to the greater trochanter though an awl hole using the tag sutures. The short external rotators were repaired with a nonabsorbable suture. The fascia juan antonio was closed with Vicryl. The subcutaneous layer was closed with barbed sutures and skin laureano. A lali dressing was applied and the patient was taken to recovery having tolerated the procedure well. Complications: none Post-operative Condition: stable Disposition: Acute Care Plan for aftercare: The patient will be maintained on a standard total hip replacement protocol with weight bearing as tolerated and posterior hip precautions. The patient will receive Aspirin and sequential compression devices for DVT prophylaxis. The patient will be discharged home when safe for the home environment.
[2023-12-31] MEDS: CEFAZOLIN 2 GM/100 ML PREMIX 100 ML IV ×2 (11:31→20:52)
[2023-12-31] MEDS: TRANEXAMIC ACID 1,000 MG VIAL 2000 MG INJ ×2 (11:34→13:03)
[2023-12-31] MEDS: BUPIVACAINE LIPOSOME 266 MG/20 ML VIAL INJ (11:46)
[2023-12-31] MEDS: BUPIVACAINE 0.25% (PF) 60 ML, EPINEPHrine 0.3 MG INJ ×2 (11:46→12:06)
[2023-12-31] MEDS: METOCLOPRAMIDE 10 MG/2 ML INJ IV (14:04)
[2023-12-31] MEDS: fentaNYL 100 MCG/2 ML INJ IV ×2 (14:04→14:18)
[2023-12-31] MEDS: ONDANSETRON 4 MG/2 ML INJ IV (14:05)
[2023-12-31] MEDS: OXYCODONE IR 5 MG TABLET PO ×3 (14:10→15:00)
[2023-12-31] MEDS: HYDROMORPHONE 1 MG INJ IV ×3 (14:25→15:40)
[2023-12-31] MEDS: ACETAMINOPHEN 325 MG TABLET 650 MG PO (15:01)
[2023-12-31] MEDS: LACTATED RINGERS 1,000 ML 100 ML IV (15:03)
--- NOTE | 2023-12-31 16:31 | PT-IP ANOTE ---
Pt arrives mid afternoon to floor and with pain management challenges same day posterior THR and will initiate assessment next date.
[2023-12-31] MEDS: OXYCODONE IR 10 MG TABLET PO ×2 (18:04→20:52)
--- NOTE | 2023-12-31 18:46 | PC.NURSE ---
Pt arrived from PACU via bed, crying pain 10/10 to Right hip, PACU nurse administered 0.5 Dilaudid prior to transport and 0.5 Dilaudid when pt arrived in room, administered 5mg Oxy as ordered, pt continues to cry and writhe in pain, called provider and was able to get orders for increased pain meds and one time dose of IVP 1mg Dilaudid. Pain states that pain is better controlled at this time. Oriented to room and call light system, no further needs at this time.
[2023-12-31] MEDS: DOCUSATE 100 MG CAPSULE PO (20:52)
[2023-12-31] MEDS: ASPIRIN EC 81 MG TABLET PO (20:52)
[2023-12-31] MEDS: hydrOXYzine HCL 25 MG TABLET PO (20:55)
[2024-01-01] VITALS: BP 102/68; PULSE 62; RESP 16; TEMP 35.9; O2SAT 99
[2024-01-01] MEDS: OXYCODONE IR 5 MG TABLET PO ×2 (00:02→03:07)
[2024-01-01] MEDS: CEFAZOLIN 2 GM/100 ML PREMIX 100 ML IV (03:03)
[2024-01-01 04:00] VITALS: BP 110/69; PULSE 72; RESP 16; TEMP 35.4; O2SAT 92
[2024-01-01] MEDS: OXYCODONE IR 10 MG TABLET PO ×3 (06:42→14:49)
[2024-01-01 06:50] LABS: Hematocrit 37.3 % (36-46); Hemoglobin 12.4 g/dL (12.0-16.0)
--- NOTE | 2024-01-01 07:12 | PM.DS.1 ---
History of Present Illness History of Present Illness Date Patient Seen: 01/01/24 Time Patient Seen: 07:00 Chief complaint: Right Total Hip Arthroplasty Narrative: The patient has had progressively worsening right hip pain with radiographic changes consistent with arthritis. Non-operative management has failed and the patient has requested total hip replacement. The risks, benefits and alternatives to surgery were discussed with the patient prior to proceeding. Risks discussed included, but were not limited to, failure to relieve pain, leg length discrepancy, dislocation, stiffness, infection, nerve damage, deep venous thrombosis, pulmonary embolism, stroke, coma, heart attack, permanent paralysis and , as well as the potential need for eventual revision of the prosthetic. Discharge Providers Provider Discharge Date: 01/01/24 Consults: 12/31/23 06:00 Consult to Anesthesiology Routine Comment: Consulting Provider: Anesthesiologist Reason for consultation: Regional block for post operative pain control 12/31/23 14:45 Consult to Discharge Planning Routine Comment: Consult to Occupational Therapy Evaluate & Treat Comment: Physician Instructions: Evaluate and treat Consult to Physical Therapy Evaluate & Treat Comment: Physician Instructions: post op VASILE protocol Discharge provider: Fidencio Salazar PA-C Summary Hospital Course Discharge Diagnosis: Severe right hip OA Hospital Course: Operative Date/Time/Diagnoses Date of procedure: 12/31/23 Time of procedure: 11:20 Pre-op diagnosis: Severe right hip OA Post-op diagnosis: same Procedure & Clinicians Procedure: Right total hip arthroplasty posterior approach Same procedure as scheduled: Yes Surgeon: Demetria iMreles Doughnut Glazier: Abhilash Morales Anesthesia Type: General and Spinal Operative Notes Findings: Severe right hip OA, adequate stability, adequate bone Closure Type: primary Specimen(s): none sent Prosthetic devices, grafts, tissues, transplants, or devices: Mireles and nephew R3 size 52, neutral poly liner, one 6.5 mm screw, polar stem standard offset size 3 with collar, 36 x +0 Oxinium head Estimated Blood Loss (mL): 250 Blood products transfused: none Status at Discharge Cognitive/behavioral status at discharge: oriented Functional status at discharge: uses cane/walker Overall status at discharge: patient is back to baseline Time Spent with Patient Time spent: Less than 30 minutes Exam Vital Signs (past 8 hours): - 01/01/24 00:00 01/01/24 04:00 Temperature 96.6 F L 95.8 F L Pulse Rate 62 72 Respiratory Rate 16 16 Blood Pressure 102/68 110/69 Pulse Oximetry 99 92 Oxygen Flow Rate 0 0 Oxygen Delivery Method Room Air Oxygen Flow Rate 0 Narrative Exam Narrative: Patient found resting comfortably in bed. No new numbness or tingling in lower extremities. 5/5 strength in hip flexors, quadriceps, hamstrings, DF, PF, EHL bilaterally. Sensation to light touch intact throughout BLE. Calves soft, compressible, nontender. ?Dressing placed intraoperatively CDI. MITESH functioning Resp Effort & Inspection: normal respiratory effort and able to speak in complete sentences Objective Labs 01/01/24 06:37 Labs: Laboratory Results - last 24 hr 01/01/24 06:37 Hgb 12.4 Hct 37.3 PFSH Medical History (Updated 12/21/23 @ 09:22 by Rakel Stokes RN) BMI 38.0-38.9,adult (12/21/23) Psoriatic arthritis Psoriasis Osteoarthritis Spinal stenosis Overactive bladder Diverticulitis (11/2021) Surgical History (Updated 12/21/23 @ 08:49 by Rakel Stokes RN) History of total left hip replacement (01/20/23) S/P lumbar microdiscectomy Hx of cholecystectomy Social History household members: children Smoking Status: Former smoker alcohol intake: current Discharge Assessment & Plan Assessment and Plan Assessment: Status post Right VASILE Plan of Treatment: Discharge to home. Baseline pain relief with acetaminophen 650 mg every 6 hours and ibuprofen 400 mg q.4 hours PRN for multimodal pain control. Patient has already received prescriptions for oxycodone 5 mg q.4 hours as needed for breakthrough pain. Aspirin 81 mg b.i.d. for 6 weeks for DVT prevention. Ambulate with assistive devices. Initiate physical therapy in the next 5-10 days. Keep dressing clean and dry next 2 weeks. Follow up in clinic in 2 weeks for wound check Discharge Plan Discharge Plan Patient Disposition: Home Provider Discharge Comment: DC pending PT approval Discharge orders & Medications Discharge Orders: Discharge (Order); Ordered 01/01/24 Ordered By: Fidencio Salazar Prescriptions: New acetaminophen 325 mg Tablet 650 mg PO Q6H PRN (Reason: Fever/Mild Pain (1-3)) Qty: 90 0RF aspirin 81 mg Tablet,Delayed Release (Dr/Ec) 81 mg PO BID Qty: 90 0RF docusate sodium 100 mg Capsule 100 mg PO BID Qty: 30 0RF ibuprofen 400 mg Tablet 400 mg PO Q4H PRN (Reason: Pain, Mild (1-3)) Qty: 120 0RF Continued lisdexamfetamine 30 mg capsule 30 mg PO QAM Humira(CF) Pen 40 mg/0.4 mL pen injector kit 40 mg SUBCUT Q2W Diet/Activity/Treatments Diet: Diet as Tolerated Activity: Ambulate multiple times a day. Use a cane or walker as needed. Full weight on leg. Cold/Heat Therapy: Use ice multiple times a day. Skin/Wound/Dressing Care Skin care: Leave dressing on. Okay to shower Report to your healthcare provider any signs of infection, such as:: chills, fever, night sweats, unusual drainage and unusual redness Dressing: Leave dressing on. Do not soak in a bath or hot tub Visit Report/Discharge Packet Instructions: DI for Hip Replacement, DI for Constipation, How to Prevent Falls, DI for Prescription Opioid Use Stand Alone Forms: Patient Portal/API, Lindsey [facility] MITESH Drain, Surgery Discharge Discharge Data Attending Provider: Demetria Mireles
[2024-01-01 08:00] VITALS: BP 104/62; PULSE 66; RESP 18; TEMP 36.2; O2SAT 99
[2024-01-01] MEDS: DOCUSATE 100 MG CAPSULE PO (08:55)
[2024-01-01] MEDS: ASPIRIN EC 81 MG TABLET PO (08:56)
[2024-01-01] MEDS: ACETAMINOPHEN 325 MG TABLET 650 MG PO ×2 (08:56→14:49)
[2024-01-01] MEDS: hydrOXYzine HCL 25 MG TABLET PO (08:57)
[2024-01-01] MEDS: IBUPROFEN 400 MG TABLET PO ×2 (08:57→14:48)
--- NOTE | 2024-01-01 11:00 | PT.IIE ---
Current Diagnoses Unilateral primary osteoarthritis, right hip (12/31/23) Surgery Performed Operation Date: 12/31/23 10:45 Actual Procedures p Total Hip Arthroplasty(Right) - Demetria Mireles MD Surgical History (Last Updated 12/21/23 @ 08:49 by Rakel Stokes, RN) History of total left hip replacement (01/20/23) Hx of cholecystectomy S/P lumbar microdiscectomy Medical History (Last Updated 12/21/23 @ 09:22 by Rakel Stokes, RN) BMI 38.0-38.9,adult (12/21/23) Diverticulitis (11/2021) Osteoarthritis Overactive bladder Psoriasis Psoriatic arthritis Spinal stenosis Physical Therapy Inpatient Evaluation/Re-Eval M1 PT/OT-IP Prior Functional Status Start: 01/01/24 12:06 Freq: NEEDED Status: Active Protocol: Document 01/01/24 11:00 AB (Rec: 01/01/24 12:29 AB [id number]) Medical Review Prior Functional Status Medical History Reviewed Yes Communication able to make needs known Mobility and Gait pt stated that she was modified independent with all mobilities and ambulation without AD Social History Household Members children Living Arrangements Apartment/Condo Number of Floors (Floors) One Floor Number of Stairs To Enter/Railing? 3 steps with wide bilateral rails down + 8 steps R rail + landing + 8 steps R rail to enter the apartment Home Environment Standard Height Toilet,Tub/ Shower Home Equipment Front Wheel Walker,Straight Cane,Raised Toilet Seat w/ Armrests,Shower Seat with Backrest,Hand Held Shower, Sales Outfitter,Grab Bars In Shower Additional Social History Comment pt lives with her children and can assist; pt's brother will stay with pt for a few days to assist pt has an adjustable bed M2 PT-IP Current Condition Start: 12/31/23 16:31 Freq: NEEDED Status: Active Protocol: Document 01/01/24 11:00 AB (Rec: 01/01/24 12:29 AB [id number]) Physical Therapy Current Condition Current Condition Evaluation Date 01/01/24 Treatment Diagnosis s/p R VASILE posterior; difficulty in walking Onset Date 12/31/23 M3 PT-IP Subjective Start: 12/31/23 16:31 Freq: NEEDED Status: Active Protocol: Document 01/01/24 11:00 AB (Rec: 01/01/24 12:29 AB [id number]) Subjective Physical Therapy Visit Type Type Initial Evaluation Visit Start Time 11:00 Visit Stop Time 11:45 Number of PREFORMER IMPREGNATED FABRICS Visits 0 Physical Therapy Visit Comments Patient Comments agreeable to do PT Therapy Pain Assessment Pain When Pain Assessed At Rest Pain Present Pain Present Pain Reported Location right hip Intensity 9 Scale Used Numeric (0 - 10) Pain Management Techniques Apply Cold,Distraction, Modification of Treatment,Re- positioning,Timing of Activity with Medications M4 PT-IP Mobility and Gait Start: 12/31/23 16:31 Freq: NEEDED Status: Active Protocol: Document 01/01/24 11:00 AB (Rec: 01/01/24 12:29 [id number]) PT-Bed Mobility Assessment Supine to Sit Supine to Sit Standby Assistance PT-Transfer Assessment Sit to and From Stand Sit to and from Stand Standby Assistance,1 Person Assistance,Use of Upper Extremities Equipment Transfer Assistive Device Gait Belt,Front Wheeled Walker Orthotic/Prosthetic Devices or Brace: No Transfers Transfer Destination Chair,Toilet Transfer Technique ambulated Transfer Ability Level of Assist Standby Assistance,Use of Upper Extremities Comments Mobility Comments pt supine in bed and agreeable to do PT. obtained PLOF and home set up. reviewed hip precautions with pt and pt able to recall. BP: 105/62. completed supine to sit SBA. able to sit on EOB SBA. c/o increase R hip pain. BP: 130/ 68. completed sit to stand SBA and ambulated to the toilet using FWW SBA ~ 30 ft. OT assisted pt with toileting needs. pt ambulated in the hallway towards stairs using FWW SBA ~ 100 ft. stair climbing training. educated pt on how to do stair using R rail + SPC. pt completed requiring max A and max cues. c/o increase hip pain. assisted pt back to her room. pt ambulated from w/c to chair using FWW SBA. positioned pt on the chair. call light and table placed within reach. pt stated that she will call Lift asssitance to get her into her apartment. informed pt regarding HHPT recommendation at this time and agreed. Gait Assessment Gait Gait Assistance Required: Standby Assistance Distance (Feet) 100 Able to Maintain Weight Bearing Status Yes During Gait Assistive Devices Assistive Device Gait Belt,Front Wheeled Walker Orthotic/Prosthetic Devices or Brace: No Gait Deviations General Gait Pattern Decreased Stride Length, Decreased Feet Clearance Factors Limiting Gait Function Factors Limiting Gait Function Decreased Activity Tolerance, Decreased Strength,Limited Range of Motion,Pain,Poor Balance Stair Climbing Assessment Evaluation Level of Assist On Stairs Maximal Assistance,1 Person Assistance Devices Stair Climbing Assistive Devices Straight Cane,Right Railing Technique/Endurance Stair Climbing Direction Ascend and Descend Stair Climbing Technique Step to Step Number of Steps Climbed 3 Query Text: Stair Climbing Set # Repetitions (reps) 1 PT-Balance Assessment Sitting Balance and Reactions Static Sitting Balance Ability Normal Dynamic Sitting Balance Ability Good Standing Balance and Reactions Static Standing Balance Ability Good Dynamic Standing Balance Ability Fair Device Used FWW M5 PT-IP Objective Assessments Start: 12/31/23 16:31 Freq: NEEDED Status: Active Protocol: Document 01/01/24 11:00 AB (Rec: 01/01/24 12:29 [id number]) Orientation Orientation/Cognition Level of Alertness Alert Orientation Name,Place,Situation Language Function Ability No Deficits Noted Safety Awareness Understands Safety Issues Memory Description No Deficits Noted Gross Range of Motion Lower Extremity ROM Assessment Within Functional Limits Strength Lower Extremity Strength Assessment Right Impaired Hip 3-/5 Knee 4-/5 Coordination Assessment Gross Coordination Gross Coordination WNL Sensation Assessment Sensation Gross Sensation WNL Muscle Tone Muscle Tone WNL Yes M6 PT-IP Treatment Start: 12/31/23 16:31 Freq: NEEDED Status: Active Protocol: Document 01/01/24 11:00 AB (Rec: 01/01/24 12:29 AB [id number]) Physical Therapy Treatment Education Education Provided Precautions,Weight Bearing Status,Post-Op Packet,Safety M7 PT-IP Assessment and Plan Start: 12/31/23 16:31 Freq: NEEDED Status: Active Protocol: Document 01/01/24 11:00 AB (Rec: 01/01/24 12:29 AB [id number]) PT Summary Assessment and Plan Potential Rehabilitation Potential Good Status of Condition at Evaluation Evolving Summary Impairments Pain,ROM,Strength,Balance, Coordination,Bed Mobility, Transfers,Gait,Activity Tolerance Assessment Summary pt is a 43 y/o F s/p R VASILE posterior approach POD 1. pt has R hip posterior precautions and is WBAT. pt requiring SBA with bed mobility, transfers and ambulation using fWW but require max A for stair climbing with c/o increase R hip pain. pt stated that she will have Lift asssistance to get her into her apartment. pt will also benefit from HHPT . Goals Bed Mobility Goal Independent Transfer Goal Independent,Front Wheeled Walker Gait Goal Independent,Front Wheel Walker Gait Distance 200 Other Goals up/down 19 steps R rail +SPC SBA Days to Meet Goals 5 Frequency of Treatment Frequency Of Treatment Twice a Day Treatment Plan Physical Therapy Treatment Plan Bed Mobility Training,Transfer Training,Gait Training, Therapeutic Exercise,Balance Retraining,Post Op Education, Discharge Planning,Hot or Cold Pack,Neuromuscular Re-ed, Coordination Retraining,Manual Therapy Precautions Posterior Hip Precautions No Hip Flexion > 90 degrees,No Hip Internal Rotation,No Hip Adduction Weight Bearing Status Weight Bearing Status Weight Bear as Tolerated Allowed Weight Bearing Amount (enter % RLE WBAT or #) (%) Recommendations To Nursing Amount of Assist Needed 1 Person Assist Discharge Recommendations PT Discharge Recommendations Home with Assistance,Home Health Transportation Needs at Discharge Private Vehicle
--- NOTE | 2024-01-01 11:08 | CM.DANOTE ---
Addendum entered by CK Crook 01/01/24 14:00: [facility] states their next open date for PT services is 01/10, recommended that a referral to be sent to other agency for sooner date. DCP sent referral to [facility] who noted they will review. NILS Baltazar Addendum entered by CK Crook 01/01/24 12:50: Per PT, home health PT recommended for pt and pt agreeable. Discussed this with pt and pt stated she believes she utilized [facility] in the past. Referral sent to [facility]. NILS Baltazar Original Note: DCP Assessment Note: Pt is a 43yo female, resident of [place], is POD1 Right hip OA. Pt lives in an apartment with her family to include children and her older brother. Pt's Primary Care Provider is Dr. Ronald Godoy MD and insurance is [employer] [facility]. Reviewed chart and team rounds for pt's medical status and initial discharge needs. DCP met w/patient at bedside; introduced self and role. Patient was found in bed, alert and oriented, cooperative with assessment. Pt confirmed living situation and good support in . Pt expressed preference in returning home, declining home health. Pt agreeable to working with therapies and following their recommendations. Pt reported some anxiety around getting into her home (stairs) due to previous hx of unmanaged pain post-surgery. DCP discussed Lift Assist services with [facility] non-emergency line, provided non-emergency phone number, pt appreciative. Plan: Anticipating discharge home with partner to transport. Awaiting PT/OT evaluations and recommendation for evolving discharge plans. CM team will follow closely for coordination of discharge plans. NILS Baltazar Discharge Planning/Care Management CM Discharge Assessment Start: 01/01/24 10:57 Freq: Status: Active Protocol: Document 01/01/24 11:01 MW (Rec: 01/01/24 11:07 [id number]) Discharge Planning Assessment Assigned Cryogenics Repairer CK Madrigal DPOA/Assigned Designee Name Robert Lorenzo, Friend/DPOA Contact Information [phone] Advance Directives? Yes Advance Directives on File No History Provided By Patient,Medical Record Expected Length of Stay 1 Has Patient been admitted in last 30 No days? Prior Living Arrangements Apartment/Condo Household Members family,children Comment Children (oldest son is 19yo) and older brother. Type of transporation used prior to Drives own vehicle admit Independent with ADL's Yes Is patient alert and oriented? Yes Caregiver for Another Yes: Children DME Already Rented / Owned FWW / Walker,Cane Comment Pt declines home health referral, preference for home. Patient boyfriend to transport her home. Barriers to Discharge No Discharge Plan Home Transportation Arrangement Partner Referrals Initiated None needed If patient plan is home with home health No : Has signed face to face form been completed? Whiteboard Updated in Patient Room with Yes name and ext. # of Cryogenics Repairer Comment [phone] Review Status In Process Please Provide Date Initial DC 01/01/24 Assessment Was Performed Next Review Type Continued Stay Review
--- NOTE | 2024-01-01 11:30 | OT.IP.EVAL ---
Current Diagnoses Unilateral primary osteoarthritis, right hip (12/31/23) Surgery Performed Operation Date: 12/31/23 10:45 Actual Procedures p Total Hip Arthroplasty(Right) - Demetria Mireles MD Past Medical History (Last Updated 12/21/23 @ 09:22 by Rakel Stokes, RN) BMI 38.0-38.9,adult (12/21/23) Diverticulitis (11/2021) Osteoarthritis Overactive bladder Psoriasis Psoriatic arthritis Spinal stenosis Surgical History (Last Updated 12/21/23 @ 08:49 by Rakel Stokes, RN) History of total left hip replacement (01/20/23) Hx of cholecystectomy S/P lumbar microdiscectomy Occupational Therapy Inpatient Evaluation/Re-Eval M1 PT/OT-IP Prior Functional Status Start: 01/01/24 12:06 Freq: NEEDED Status: Active Protocol: Document 01/01/24 10:55 [facility] (Rec: 01/01/24 12:27 [facility] [id number]) Medical Review Prior Functional Status Communication Independent Activities of Daily Living and IADL's Pt having more difficulty ADl and IADL needs. Social History Household Members family,children Living Arrangements Apartment/Condo Number of Floors (Floors) Two Floors Number of Stairs To Enter/Railing? 3 steps down with bilateral wide rails and 2 flights of steps 16 each with right rail up and landing. Home Environment Standard Height Toilet,Tub/ Shower Home Equipment Front Wheel Walker,Straight Cane,Bedside Commode,Shower Seat without Backrest,Hand Held Shower,Long Handled Sponge,Transformation Lead,Sock Aid,Grab Bars In Shower M2 OT-IP Current Condition Start: 01/01/24 12:06 Freq: Status: Active Protocol: Document 01/01/24 10:55 [facility] (Rec: 01/01/24 12:27 [facility] [id number]) Occupational Therapy Current Condition Current Condition Evaluation Date 01/01/24 Treatment Diagnosis S/P R VASILE Diagnosis Onset Date 12/31/23 Post Operative Precautions Posterior Hip Precautions No Hip Flexion > 90 degrees,No Hip Internal Rotation,No Hip Adduction M3 OT- IP Subjective and Pain Start: 01/01/24 12:06 Freq: Status: Active Protocol: Document 01/01/24 10:55 [facility] (Rec: 01/01/24 12:27 [facility] [id number]) OT- Subjective Occupational Therapy Visit Type Type Initial Evaluation Visit Start Time 10:55 Visit Stop Time 11:30 Occupational Therapy Visit Comments Patient Comments Pt agreed to get up and needing to use the toilet. Patient/Caregiver Goals To go home. OT Pain Assessment Pain When Pain Assessed At Rest Pain Present Pain Present Pain Reported Location right hip Intensity 6 Scale Used Numeric (0 - 10) M4 OT- IP ADL's Start: 01/01/24 12:06 Freq: Status: Active Protocol: Document 01/01/24 10:55 [facility] (Rec: 01/01/24 12:27 [facility] [id number]) OT [id number] Comments OT Self-Feeding Comments Not at meal time. NO issues anticipated. OT ADL-Grooming Comments OT Grooming Comments NOt performed. OT ADL-Oral Care Comments Oral Care Comments Not performed. OT ADL-Dressing General Eval Lower Body Dressing Ability Maximum Assistance Areas Needing Assistance Socks Comments OT Dressing Comments Pt has rn shift mgr and sock aid and that her family to assist her as needed. OT ADL-Toileting General Evaluation Toileting Ability Standby Assistance Comments OT Toileting Comments Pt vc to marketing area manager order to best follow her hip precautions. Showed pt toilet paper aid which may increase ease for her hygiene needs. OT ADL-Bathing Comments OT Bathing Comments Pt states her bathroom is too small to use a tub bench. M5 OT- IP IADL's Start: 01/01/24 12:06 Freq: Status: Active Protocol: Document 01/01/24 10:55 [facility] (Rec: 01/01/24 12:27 [facility] [id number]) OT-Instrumental Activities of Daily Living Home Safety Awareness Awareness of Need for Assistance at Home Good Awareness Ability to Problem Solve Emergency Able to Problem Solve Situations Medication Management Medication Management No Deficits Identified Money Management Money Management No Deficits Identified Meal Preparation Meal Preparation Caregiver Provides Assist School Laboratory Technician School Laboratory Technician Caregiver Provides Assist M6 OT- IP Functional Cognition Start: 01/01/24 12:06 Freq: Status: Active Protocol: Document 01/01/24 10:55 [facility] (Rec: 01/01/24 12:27 [facility] [id number]) Cognitive Factors Limiting Selfcare Function Cognitive Ability Level of Alertness Alert Patient Orientation Name,Age,Birthday,Month,Date, Year,Day of Week,Place, Situation Attention Span Ability Capable of Focused Attention Ability to Follow Commands Able to Follow Multi-Step Commands Memory Description No Deficits Noted Cognitive Comments Cognitive Assessment Comments Pt able to states, incorporate all her hip precautions with good safety. OT- Vision and Hearing OT- Hearing Assessment OT- Hearing Assessment WFL OT- Vision Assessment Visual Acuity Glasses All The Time Visual Attentiveness WFL Occular Pursuits WFL M7 OT- IP Mobility and Balance Start: 01/01/24 12:06 Freq: Status: Active Protocol: Document 01/01/24 10:55 [facility] (Rec: 01/01/24 12:27 [facility] [id number]) OT- Bed Mobility Assessment Supine to Sit Supine to Sit Assist Standby Assistance OT-Transfer Assessment Sit to and From Stand Sit to and from Stand Standby Assistance,Contact Guard Assistance Transfers Transfer Ability Standby Assistance,Contact Guard Assistance Technique Transfer Destination Bed,Toilet,Wheelchair Transfer Technique Stand Step Pivot Devices Transfer Assistive Devices Gait Belt,Front Wheeled Walker Comments Mobility Comments Pt increased time to get to the edge of the bed. CGA to close SBA to stand depending on height of surfaces. CGA to close SBA with the FWW. OT- Balance Assessment Sitting Balance and Reactions Static Sitting Balance Ability Normal Dynamic Sitting Balance Ability Normal Standing Balance and Reactions Static Standing Balance Ability Good Dynamic Standing Balance Ability Good M8 OT- IP Objective Assessments Start: 01/01/24 12:06 Freq: Status: Active Protocol: Document 01/01/24 10:55 [facility] (Rec: 01/01/24 12:27 [facility] [id number]) OT Gross Range of Motion Upper Extremity Range of Motion Assessment Within Functional Limits OT Strength Upper Extremity Strength Assessment Within Functional Limits M9 OT- IP Assessment and Plan Start: 01/01/24 12:06 Freq: Status: Active Protocol: Document 01/01/24 10:55 [facility] (Rec: 01/01/24 12:27 [facility] [id number]) OT Summary Assessment and Plan Potential Rehabilitation Potential Excellent Analytic Complexity at Evaluation Low Summary OT Impairments Pain,Balance,Functional Mobility,Dressing,Toileting, Bathing,Toilet Transfers, Shower Transfers Progress Towards Goals Progressing Toward Goals Assessment Summary Pt low complexity and main barriers are steps and pain. Pt doing well and to have her family to assist her and have outpt PT. Goals Self-Feeding Goal Independent Grooming Goal Independent Dressing Goal Independent,Transformation Lead,Sock Aid Toileting Goal Independent,Toilet Paper Aid Bathing Goal Standby Assistance Toilet Transfer Goal Independent Shower Transfer Goal Minimal Assistance Days to Meet Goals 7 Frequency of Treatment Other frequency 5x/week Treatment Plan OT Treatment Plan ADL Training,Functional Mobility,Patient/Family Education,Discharge Planning Discharge Recommendations OT Discharge Recommendations Home with Assistance, Outpatient PT Transportation Needs at Discharge Private Vehicle
--- NOTE | 2024-01-01 17:19 | PC.NURSE ---
Discharge: Pt is ready to d/c to home. Seen by PA and received d/c instructions. Seen by PT and OT and she is safe to d/c to home. She is following her posterior hip precautions. MITESH dressing teaching given. Po pain meds are effective. Vds w/out diff. Is tolerating her diet w/out problems. Pt is agreeable to go home. Pt d/c to home via auto w/spouse.
== END 2024-01-01 14:50 | disposition home or self-care (01) ==
LOC: OR 08:39 → AC 08:40
PROVIDERS: Referring Provider Orthopaedic Surgery; Visit Provider Orthopaedic Surgery
PROC: 0SR90JZ Replacement of Right Hip Joint with Synthetic Substitute, Open Approach (ICD-10-PCS; CPT 27130; principal; 2023-12-31 10:45)
DX: M16.11 Unilateral primary osteoarthritis, right hip (principal)
CPT/HCPCS: 27130; 36415; 72170; 73502; 85014; 85018; 97162; 97165; 97530; 97535; C1776; A9270; C9290; J0171; J0690; J1100; J1171; J2250; J2405; J2704; J2765; J3010